=== PATIENT | male | born 1970 | race Caucasian/White ===

== ENCOUNTER 2018-11-25 09:47 | Outpatient (CLI) | payer BC, SELFPAY ==
[2018-11-26 10:55] LABS: Lyme Ab w Rflx to Lyme Confirm Negative
[2018-11-27 01:53] LABS: Anaplasma phagocytophilum Negative (Negative); B. miyamotoi PCR Negative (Negative); Babesia divergens/MO-1 Negative (Negative); Babesia duncani Negative (Negative); Babesia microti Negative (Negative); Ehrlichia chaffeensis Negative (Negative); Ehrlichia ewingii/canis Negative (Negative); Ehrlichia muris eauclairensis Negative (Negative)
== END 2018-11-25 10:07 ==
PROVIDERS: PCP Nurse Practitioner Family; Visit Provider Nurse Practitioner Family
DX: M25.50 Pain in unspecified joint (principal)
CPT/HCPCS: 36415; 87798; 86618

== ENCOUNTER 2019-03-18 19:00 | Outpatient (REF) | payer BC, SELFPAY ==
[2019-03-18 19:10] LABS: TSH (W/Ref FT4) 3.47 uIU/mL (0.36-3.74)
== END 2019-03-18 19:20 ==
LOC: NCHCN 19:00
PROVIDERS: PCP Nurse Practitioner Family; Visit Provider Nurse Practitioner Family
DX: E03.9 Hypothyroidism, unspecified (principal); Z00.00 Encounter for general adult medical examination without abnormal findings
CPT/HCPCS: 84443

== ENCOUNTER 2020-06-29 10:12 | Outpatient (CLI) | payer BC, SELFPAY ==
[2020-07-01 15:24] LABS: COVID-19 RT-PCR UVMMC Result Negative (Negative)
== END 2020-06-29 10:13 | disposition home or self-care (01) ==
LOC: LBO 10:13
PROVIDERS: PCP Nurse Practitioner; Visit Provider Nurse Practitioner
DX: Z20.822 Contact with and (suspected) exposure to COVID-19 (principal)
CPT/HCPCS: U0003

== ENCOUNTER 2020-07-31 09:58 | Outpatient (CLI) | payer BC, SELFPAY ==
--- NOTE | 2020-07-31 09:15 | DI.RAD_ITS ---
EXAM: XR KNEE LT 3V AP,LAT,JOSH CLINICAL HISTORY: knee pain TECHNIQUE: COMPARISON: No exams were available for comparison FINDINGS: Three views were obtained there is an ACL reconstruction with anchors in distal femur and proximal ti steve. There is moderate narrowing of the cartilaginous joint space of the medial tibiofemoral joint. Note is made of chondrocalcinosis. There are mild to moderate marginal osteophytes of the joints of the knee. IMPRESSION: DJD predominantly involving medial tibiofemoral joint. RADIATION DOSE DELIVERED: Total DLP
== END 2020-07-31 09:59 | disposition home or self-care (01) ==
LOC: DIORS 09:58
PROVIDERS: PCP Nurse Practitioner; Referring Provider Nurse Practitioner; Visit Provider Student in an Organized Health Care Education/Training Program
DX: M17.12 Unilateral primary osteoarthritis, left knee (principal)
CPT/HCPCS: 73562

== ENCOUNTER 2020-08-22 01:36 | Outpatient (CLI) | payer BC, SELFPAY ==
--- NOTE | 2020-08-22 06:18 | DI.MRI_ITS ---
EXAM: MR LOWER JOINT LT WO CLINICAL HISTORY: L KNEE PAIN,INTERNAL DERANGEMENT,M23.92. TECHNIQUE: Multiplanar multisequence MRI was performed. COMPARISON: CR XR KNEE LT 3V AP,LAT,JOSH from 07/31/2020 FINDINGS: There is hardware in the distal femur and proximal tibia related to prior ACL repair. The ACL appears discontinuous, consistent with complete tear. Posterior cruciate ligament appears intact. The medi al and lateral collateral ligaments and extensor mechanism are intact. There are severe degenerative changes of the medial femoral tibial joint. There is periarticular spurring. The medial meniscus is severely degenerated. There is cartilage thinning extending down to and involving underlying bon e. Cartilage thinning and irregularity is also seen over the lateral femoral condyle lateral tibial plateau. Degenerative signal changes are seen in the lateral meniscus. There is a small cyst adjac ent to the body of the lateral meniscus. The patellar cartilage appears intact. There is a small to moderate-sized joint effusion. Small synovial cyst is seen posterior to the posterior horn of the l ateral meniscus. IMPRESSION: Tear of anterior cruciate ligament repair. Severe degenerative changes of the medial femoral tibial joint. Degenerative changes of the lateral meniscus adjacent small synovial cyst and meniscal cyst. DATA REPOSITORY:
== END 2020-08-22 01:56 ==
PROVIDERS: PCP Nurse Practitioner; Visit Provider Student in an Organized Health Care Education/Training Program
DX: M25.562 Pain in left knee (principal); M17.12 Unilateral primary osteoarthritis, left knee; S83.512A Sprain of anterior cruciate ligament of left knee, initial encounter
CPT/HCPCS: 73721

== ENCOUNTER 2020-09-28 01:39 | Outpatient (CLI) | payer BC, SELFPAY ==
[2020-09-28 13:32] LABS: Calculated LDL 172 mg/dL (<100); Cholesterol 228 mg/dL (<200); HDL Cholesterol 39 mg/dL (40-60); TSH (W/Ref FT4) 5.95 uIU/mL (0.36-3.74); Triglyceride 85 mg/dL (<150)
[2020-09-28 13:36] LABS: Hemoglobin A1C 5.2 % (<5.7)
[2020-09-28 14:02] LABS: FREE T4 0.87 ng/dL (0.76-1.46)
== END 2020-09-28 01:40 | disposition home or self-care (01) ==
PROVIDERS: PCP Nurse Practitioner; Visit Provider Nurse Practitioner
DX: E03.9 Hypothyroidism, unspecified (principal); R53.83 Other fatigue; Z13.6 Encounter for screening for cardiovascular disorders; Z13.1 Encounter for screening for diabetes mellitus
CPT/HCPCS: 36415; 80061; 83036; 84439; 84443

== ENCOUNTER 2021-01-01 02:57 | Outpatient (CLI) | payer BC, SELFPAY ==
[2021-01-01 13:16] LABS: Source Nasal/Nares
[2021-01-01 16:28] LABS: COVID-19 PCR Negative (Negative)
== END 2021-01-01 02:58 | disposition home or self-care (01) ==
PROVIDERS: PCP Nurse Practitioner; Visit Provider Student in an Organized Health Care Education/Training Program
DX: Z20.822 Contact with and (suspected) exposure to COVID-19 (principal); Z01.818 Encounter for other preprocedural examination
CPT/HCPCS: 87635

== ENCOUNTER 2021-01-01 11:55 | Outpatient (CLI) | payer BC, SELFPAY ==
--- NOTE | 2021-01-01 11:15 | DI.RAD_ITS ---
Exam(s) XR CLAVICLE RT EXAM: XR CLAVICLE RT CLINICAL HISTORY: right clavicle facture TECHNIQUE: COMPARISON: DX XR CLAVICLE RIGHT (GENERIC) from 12/30/2020 DX XR CLAVICLE RIGHT (GENERIC) from 12/30/2020 FINDINGS: Two views were obtained and show moderately comminuted moderately displaced mid clavicular fracture. Alignment appears grossly unchanged comparison with outside films from December 30. IMPRESSION: RADIATION DOSE DELIVERED: Total DLP
== END 2021-01-01 11:56 | disposition home or self-care (01) ==
LOC: DIORS 11:55
PROVIDERS: PCP Nurse Practitioner; Referring Provider Nurse Practitioner; Visit Provider Student in an Organized Health Care Education/Training Program
DX: S42.001A Fracture of unspecified part of right clavicle, initial encounter for closed fracture (principal); X58.XXXA Exposure to other specified factors, initial encounter
CPT/HCPCS: 73000

== ENCOUNTER 2021-01-03 10:24 | Day surgery (SDC) | payer BC, SELFPAY ==
[2021-01-03] VITALS (7 sets, daily range): BP systolic 131–140; BP diastolic 78–96; PULSE 57–63; RESP 15–23; TEMP 36.2–36.5; O2SAT 94–98; BMI 27.7
--- NOTE | 2021-01-03 11:05 | W.ANESPRE ---
General Info Date of Service Date Performed: 01/03/21 Height: 5 ft 11 in Weight: 90.265 kg Body Mass Index (BMI): 27.7 Surgical Procedure: Operation Date: 01/03/21 12:55 Proposed Procedures Side Surgeon p Shoulder ORIF Clavicle Right James Hartley MD Meds Allergies and Home Medications Allergies Allergy/AdvReac Type Severity Reaction Status Date / Time No Known Allergies Allergy Verified 01/03/21 10:38 Home Medication Medication Instructions Recorded levothyroxine 50 mcg tablet 50 mcg PO DAILY #60 tab 11/15/20 Current Visit Medications: Current Medications Generic Name Dose Route Start Last Admin Trade Name Freq PRN Reason Stop Dose Admin Ringer's Solution 1,000 mls @ 100 mls/hr 01/03/21 06:00 IV 02/01/21 23:59 INFUSION VIOLETTA Cefazolin Sodium 2,000 mg/ 100 mls @ 200 mls/hr 01/03/21 06:00 Sodium Chloride IVPB 01/03/21 16:00 PREOP VIOLETTA IV Miscellaneous Supplies 1 each 01/03/21 06:00 Iv Access IV 02/01/21 23:59 DIRECTED VIOLETTA Sodium Chloride 0 ml 01/03/21 06:00 Normal Saline Flush 10 Ml Syr IV 02/01/21 23:59 PRN PRN Sodium Chloride 0 ml 01/03/21 06:00 Normal Saline 10 Ml Vial IJ 02/01/21 23:59 DIRECTED PRN Sterile Water 0 ml 01/03/21 06:00 Water,Injection,Sterile 10 Ml Vial IJ 02/01/21 23:59 DIRECTED PRN PFSH Active Problems Active Problems: Problem Status Onset Code Closed right clavicular fracture 12/30/20 S42.001A Strain of muscle of right hip S76.011A Traumatic arthritis of left knee M12.562 Left ACL tear S83.512A Medical History Medical History Hypothyroidism Internal hemorrhoid Rectal bleed Surgical History Surgical History Colonoscopy - MAC (11/30/17) H/O knee surgery both- 3 reconstructions Hx of hernia repair Tobacco Smoking/Tobacco Use Status: Never Alcohol Alcohol Intake: current Alcohol intake frequency: 0-2 drinks per day Substance Use Substance use: Occasionally Substance use type: marijuana Vital Signs and Lab Results Vital Signs Most Recent Vital Signs in EMR: Most Recent Vital Signs Temp Pulse Resp BP Pulse Ox 36.3 C L 59 L 18 136/81 98 01/03/21 10:30 01/03/21 10:30 01/03/21 10:30 01/03/21 10:30 01/03/21 10:30 Lab Results Blood Type / Crossmatch: No Data to Display Complete Blood Count: No Data to Display Complete Metabolic Panel: No Data to Display Liver Function Panel: No Data to Display Coagulation Panel: No Data to Display Cardiac Panel: No Data to Display Arterial Blood Gas: No Data to Display Venous Blood Gas: No Data to Display Pancreas Panel: No Data to Display Thyroid Panel: No Data to Display Infectious Disease: Coronavirus (COVID-19)(PCR) Negative (Negative) 01/01/21 11:07 01/01/21 Coronavirus 2019 Source Nasal/Nares 01/01/21 11:07 01/01/21 Blood Cultures: No Data to Display Toxicology Panel: No Data to Display Anesthesia Assessment and Plan Anesthesia History Personal History: No History of Anesthesia Complications Family History: No Family History of Anesthesia Complications Exercise Tolerance Exercise Tolerance: Metabolic Equivalents>4 Pertinent Negatives Pertinent Negatives: No Symptoms of GERD, No Major Cardiovascular Symptoms or Complaints, No Major Pulmonary Symptoms or Complaints and No History of CVA/TIA Cardiac & Pulmonary Exam Cardiac Exam: Normal S1/S2 Heart Sounds Pulmonary Exam: Clear Bilateral Breath Sounds Airway Exam Known Difficult Airway: No Mallampati Class: 1 Mouth Opening: Normal (> 3cm) Thyromental Distance: Greater than 3 cm Neck Range of Motion: Full ROM Neck Circumference: Normal Teeth Condition: Normal Dentition ASA Classification ASA Score: ASA 2 Emergency Case?: No NPO Status NPO Status: NPO Clears >2 hours, Solids >8 hours Anesthesia Plan Resuscitation Status: Full Code Anesthesia Technique: General Anesthesia Airway Planned: Endotracheal Tube Pain Management: Surgeon and patient request nerve block Monitors Used: Standard Monitors
[2021-01-03] MEDS: Lactated Ringers 1,000 ML 100 ML IV (11:06)
--- NOTE | 2021-01-03 12:15 | W.ANESNERVE ---
Nerve Block Single Injection Procedure Date and Time Date Performed: 01/03/21 Procedure Start: 12:09 Location Where Procedure Performed Procedure Location: PACU Reason Performed: Postoperative Analgesia Requesting Provider: James Hartley Timeout Performed Timeout Performed: Yes Monitoring Used ECG, Blood Pressure and SpO2 Sterility Sterility: Hand Hygiene, Surgical Cap, Surgical Mask, Sterile Gloves and Chlorhexidine Sedation Given During Procedure Sedation Given (Indicate Dose Given): Versed IV Dose:: 2 mg and Ketamine IV Dose:: 10 mg Patient Mental Status Patient Mental Status: Sedate with meaningful communication Nerve Block 1st Nerve Block: Laterality: Right Block Type: Interscalene Needle / Catheter Used: 100mm SonoPlex II Local Anesthetic Bolus (Indicate Dose Given): Lidocaine used for local infiltration of skin, Injected in 3-5ml increments after negative blood aspiration, Bupivacaine 0.5% Dose:: 7.5 ml and Exparel Dose:: 7.5 ml Additives (Indicate Dose Given): None Ultrasound: Sterile probe cover and gel used Ultrasound Image Saved?: Yes Nerve Stimulator: Not Used Paresthesia: None Procedure Tolerated: No Complications and Patient tolerated well Procedure Outcome: Successful Performed By: Elizabeth Edwards 2nd Nerve Block: Laterality: Right Block Type: Superficial Cervical Plexus Needle / Catheter Used: 100mm SonoPlex II Local Anesthetic Bolus (Indicate Dose Given): Lidocaine used for local infiltration of skin, Injected in 3-5ml increments after negative blood aspiration, Bupivacaine 0.5% Dose:: 2.5 ml and Exparel Dose:: 2.5 ml Additives (Indicate Dose Given): None Ultrasound: Sterile probe cover and gel used Ultrasound Image Saved?: Yes Nerve Stimulator: Not Used Paresthesia: None Procedure Tolerated: No Complications and Patient tolerated well Procedure Outcome: Successful Performed By: Elizabeth Edwards
[2021-01-03] MEDS: ceFAZolin 2,000 MG in Normal Saline 100 ML 200 MG IVPB (12:30)
--- NOTE | 2021-01-03 14:46 | DI.RAD_ITS ---
Exam(s) XR CLAVICLE RT EXAM: XR CLAVICLE RT CLINICAL HISTORY: right clavicle fracture. TECHNIQUE: 2D digital imaging was performed. COMPARISON: No exams were available for comparison FINDINGS: Fluoroscopy was provided during orthopedic procedure. Images not presented. See procedure report fo r details. Total fluoroscopy time 29 seconds Total clipped of dose 2.51mGy IMPRESSION: DATA REPOSITORY: RADIATION DOSE DELIVERED:
--- NOTE | 2021-01-03 15:41 | W.PM.DSUDISC ---
Discharge Plan Disposition Patient Disposition: HOME Condition: Stable Discharge Details Reason For Visit: Right clavicle surgery Attending Provider: James Hartley Primary Care Provider: Adela Gauthier Home Meds and New Rx's Prescriptions: New naproxen 250 mg tablet 250 - 500 mg PO BID PRN (Reason: Moderate pain or swelling) Qty: 60 RF: 0 aspirin 81 mg tablet,delayed release (DR/EC) 81 mg PO DAILY 14 Days Qty: 14 RF: 0 oxycodone 5 mg tablet 5 - 10 mg PO Q4H PRN (Reason: moderate to severe pain) Qty: 16 RF: 0 Continued levothyroxine 50 mcg tablet 50 mcg PO DAILY Qty: 60 RF: 0 Discharge Instructions Additional Instructions: Surgery: Right clavicle open reduction internal fixation Activity: You should keep your arm at your side in a neutral position most of the time except for gentle range of motion exercises and essential activities of daily living. Avoid any resisted pulling, pushing, or lifting anything heavier than a coffee. You should use the sling whenever you are out of the house for 6 weeks. At home it is best to remove the sling and rest the forearm on a pillow or support the operative side with your other hand. Do NOT use any power tools or machinery that cause vibrations. A physical therapy prescription will be provided at follow-up if needed. Nutrition: Recommend vitamin D 1,000 IU and calcium 1,200 mg daily to optimize bone metabolism. Prescriptions: Aspirin 81 mg take 1 daily to prevent a blood clot for 2 weeks Naproxen 250 mg take 1-2 every 12 hours with a meal as needed for moderate pain Oxycodone 5 mg take 1-2 every 4-6 hours as needed for severe pain You may use lrse-ezj-[id number] Tylenol (acetaminophen) as needed for mild pain. These pain medications may be taken all at once or in different combinations as needed. Also, recommend Colace (docusate) as a stool softener as surgery and pain medicine cause constipation. An [id number]-[id number] sleep aid like diphenhydramine (Benadryl) 25-50 mg may be used at night if needed. Dressings: Leave dressing in place until follow-up. Keep clean and dry at all times. Follow-up: 10-[address] Hartley ( at 11:30 AM) Let us know right away if you develop any redness, drainage, fevers, chest pain, or trouble breathing. Do not drink alcohol or drive for at least 24 hours after anesthesia. Please call the office during business hours with any questions or concerns. Referrals: James Hartley MD [ [facility] STAFF PHYSICIAN] - Discharge Orders Discharge Orders: Discharge Order (Routine); Ordered 01/03/21 Ordered By: James Hartley DS: Diagnosis Discharge Diagnosis (1) Closed right clavicular fracture: Status: Acute
--- NOTE | 2021-01-03 15:58 | ROE_ITS ---
Date of service: 01/03/21 Time of Service: 15:00 Operative Note Operative Note DATE OF PROCEDURE: 01/03/21 PRE-OP DIAGNOSIS: Right segmental displaced clavicle fracture POST-OP DIAGNOSIS: same PROCEDURE: Right clavicle ORIF, CPT #46779 SURGEON: James Hartley SOFTWARE PROJECT ENGINEER: Mamie Villarreal ANESTHESIA TYPE: Local By Surgeon, General LMA/ETT and Primary Nerve Block Refer to Anesthesia Record ESTIMATED BLOOD LOSS: 15 COMPLICATIONS: None Patient was transported to: PACU Patient's condition: stable Implants: Synthes 2.7 mm VA LCP clavicle XL plate with 4x medial and lateral locking 2.7mm screws; 4x medial and lateral 2.7 mm cortex lag screws; SutureTape cerclage over inferior central fragment Indications: Please see complete medical record for details. Findings: Segmental short and displaced medial, midshaft, and lateral clavicle fracture Procedure Description: In the operating room, general anesthesia was induced. The patient was positioned supine on the operating room table. All bony prominences were well-padded. Preoperative antibiotics were administered. The right clavicle was prepped and draped in the usual sterile fashion. The correct patient, procedure, and side of the procedure were all verified prior to incision. 30 cc of 0.5 bupivacaine containing epinephrine was infiltrated about the planned extensive clavicle incision. The fracture sites and medial and lateral extents were localized under fluoroscopic guidance. Sharp dissection was carried through the skin down to bone centrally taking care to raise full- thickness flaps and expose the fracture site. The exposure was then continued full-thickness subperiosteal and incision extended slightly medially as necessary to expose the medial extent of the fracture. This was repeated laterally. The wound and fracture fragments were copiously irrigated of clot and fibrinous material. The medialmost aspect of the fracture had an excellent fracture rubin. Bone clamps were used to anatomically reduce the medial clavicle to the medial segmental fragment. Laterally controlled the distal clavicle with bone clamps was used to appropriately correct rotation and length and use a reasonable fracture rubin to provisionally restore the lateral aspect the clavicle to the segmental fragment. An additional inferior posterior segmental piece was preserved with soft tissue attachments and rotated out of the way for this reduction maneuver and then provisionally brought back into its area of bony defect. Medially, the long vertical fracture lended itself to lack fixation quite well. The bone clamp was adjusted to allow for placement of two 2.7 mm lag screws from anterior to posterior maintaining anatomic reduction with excellent fixation strength and compression. The bone clamp was removed. The lateral oblique vertical fracture was then slightly optimized with rotation after predrilling the anterior cortex and using that as a hole for bone clamp, which allowed placement of a lateral 2.7 mm anterior posterior lag screw. The clamp was moved a second lateral 2.7 mm lag screw placed. Both were sequentially tightened demonstrating excellent fixation and compressive strength. All bone clamps removed. Direct visualization fluoroscopic guidance showed excellent reduction of this complex long multipart clavicle fracture. The inferior posterior additional fragment was provisionally reduced with forceps and then a suture tape was passed over the central part of the fragment and passed back so that a doubled over Nice knot could be tied, which had excellent compression and security of this last significant fragment. The knot was rotated anteroinferiorly so as not to be prominent. The clavicle is a hole demonstrated excellent fixation and stability at this time. Measurements showed the need for the longest superior plate available, which was opened and placed on the superior clavicle. It was just long enough to allow for the desired for medial and lateral screws past the extent of segmental medial lateral aspects of the fracture. The plate was slightly over contoured to accommodate the reduction already achieved as well as bent medially to be flush with the bone and reduce prominence. The plate was secured down to bone just medial to the fracture with a 2.7 cortex screw and then rotation adjusted to optimize central placement medial laterally. A 2.7 cortex screw was then placed lateral to the fracture site compressing the plate to bone laterally. Both cortex screws were tightened with the construct appropriately in place. Two variable angle bicortical locking screws were placed medially with a third medialmost screw placed as unicortical given proximity to the SC joint. Laterally, 3 bicortical variable angle locking screws were placed optimizing screw spread. All screw lengths and positions were checked and found to be appropriate. The initial cortex screws medial and laterally were removed and replaced with appropriate length bicortical locking screws to optimize fixation strength and reduce screw head prominence over the plate. Final AP, cephalic tilt, and [id number] fluoroscopy demonstrated excellent fracture reduction and appropriate hardware placement. The construct was tested and demonstrate robust gross stability. The wound was copiously irrigated with normal saline. Deep tissue was closed in a watertight full-thickness fashion using buried efdual-or-lqqxi 2-0 Monocryl stitches. 2-0 Monocryl was used to close the subcutaneous tissue in a buried interrupted fashion. 3-0 Monocryl was used to close skin in a subcuticular running fashion. Skin glue was applied over the incision followed by a Mepilex bandage. The patient awoke from anesthesia without complication and was transferred to the recovery room in a stable condition.
--- NOTE | 2021-01-03 16:00 | W.ANESPOSTOP ---
Postoperative Evaluation Date, Time and Location Date Performed: 01/03/21 Time Performed: 16:06 Patient Location: Day Surgery Unit Vital Signs Most Recent Imported Vital Signs: Most Recent Vital Signs Temp Pulse Resp BP Pulse Ox 36.2 C L 59 L 18 137/78 94 01/03/21 15:52 01/03/21 15:52 01/03/21 15:52 01/03/21 15:52 01/03/21 15:52 Pain Score Most Recent Pain Score: Most Recent Pain Score Pain Level 0 01/03/21 15:52 Assessment Mental Status: Awake (Alert & Oriented to Patient Baseline) Airway and Respiratory Function: Patent airway with normal (patient baseline) respiratory exam Cardiovascular Function: Hemodynamically Stable Hydration Status: Adequately Hydrated Nausea & Vomiting: No Nausea or Vomiting Pain: Pt. Denies Any Pain Peripheral Nerve Block: Regional nerve block not resolved at time of post operative discharge (Patient denying pain, block is appropriate. )
== END 2021-01-03 17:00 | disposition home or self-care (01) ==
LOC: SUR 10:25
PROVIDERS: PCP Nurse Practitioner; Visit Provider Student in an Organized Health Care Education/Training Program
PROC: (CPT 23515; principal; 2021-01-03 12:45)
DX: S42.031A Displaced fracture of lateral end of right clavicle, initial encounter for closed fracture (principal); X58.XXXA Exposure to other specified factors, initial encounter
CPT/HCPCS: 23515; 73000; J0690; J1100; J1885; J2001; J2250; J2405; J2704

== ENCOUNTER 2021-01-16 11:11 | Outpatient (CLI) | payer BC, SELFPAY ==
--- NOTE | 2021-01-16 11:00 | DI.RAD_ITS ---
Exam(s) XR CLAVICLE RT EXAM: XR CLAVICLE RT CLINICAL HISTORY: clavicle fx f/u. TECHNIQUE: 2D digital imaging was performed. COMPARISON: CR XR CLAVICLE RT from 01/01/2021 XR CLAVICLE RT from 01/03/2021 XR CLAVICLE RT from 01/03/2021 FINDINGS: BONES: There are stable post operative changes present. There is no change in alignment of the fract ure fragments. The fracture lines are still visualized. No new fracture or dislocation. JOINTS: The joint spaces are well maintained. No joint effusion is present. SOFT TISSUE: Normal. IMPRESSION: Stable postoperative changes. DATA REPOSITORY: RADIATION DOSE DELIVERED:
== END 2021-01-16 11:12 | disposition home or self-care (01) ==
LOC: DIORS 11:11
PROVIDERS: PCP Nurse Practitioner; Referring Provider Nurse Practitioner; Visit Provider Student in an Organized Health Care Education/Training Program
DX: S42.001D Fracture of unspecified part of right clavicle, subsequent encounter for fracture with routine healing (principal); X58.XXXA Exposure to other specified factors, initial encounter
CPT/HCPCS: 73000

== ENCOUNTER 2021-02-06 11:26 | Outpatient (CLI) | payer BC, SELFPAY ==
--- NOTE | 2021-02-06 11:15 | DI.RAD_ITS ---
Exam(s) XR CLAVICLE RT EXAM: XR CLAVICLE RT CLINICAL HISTORY: clavicle fx follow up. TECHNIQUE: 2D digital imaging was performed. COMPARISON: CR XR CLAVICLE RT from 01/16/2021 FINDINGS: Two views of the right clavicle again reveal the dorsal fixation plate secured by multiple screws and there also total of 4 independent screws, 20 side of the main fracture site. Fracture line still evident but no further displacement. No hardware loosening. No radiographic christine dence of osteomyelitis. Moderate degenerative changes are noted in the AC joint but there is no AC j oint distraction. IMPRESSION: DATA REPOSITORY: RADIATION DOSE DELIVERED:
== END 2021-02-06 11:27 | disposition home or self-care (01) ==
LOC: DIORS 11:27
PROVIDERS: PCP Nurse Practitioner; Referring Provider Nurse Practitioner; Visit Provider Student in an Organized Health Care Education/Training Program
DX: S42.031D Displaced fracture of lateral end of right clavicle, subsequent encounter for fracture with routine healing (principal)
CPT/HCPCS: 73000

== ENCOUNTER 2021-03-12 09:39 | Outpatient (CLI) | payer BC, SELFPAY ==
--- NOTE | 2021-03-12 09:30 | DI.RAD_ITS ---
Exam(s) XR CLAVICLE RT EXAM: XR CLAVICLE RT INDICATION: RIGHT CLAVICULAR FX F/U. COMPARISON: CR XR CLAVICLE RT from 02/06/2021 TECHNIQUE: 2D digital imaging was performed. FINDINGS: Has been no change in the fixation plate or fracture alignment. No new abnormalities. Degenerative changes AC joint and glenohumeral joint. DATA REPOSITORY: RADIATION DOSE DELIVERED:
== END 2021-03-12 09:40 | disposition home or self-care (01) ==
LOC: DIORS 09:39
PROVIDERS: PCP Nurse Practitioner; Referring Provider Nurse Practitioner; Visit Provider Student in an Organized Health Care Education/Training Program
DX: S42.031D Displaced fracture of lateral end of right clavicle, subsequent encounter for fracture with routine healing (principal)
CPT/HCPCS: 73000

== ENCOUNTER 2021-03-29 03:05 | Outpatient (CLI) | payer BC, SELFPAY ==
[2021-03-29 14:13] LABS: TSH 2.71 uIU/mL (0.36-3.74)
== END 2021-03-29 03:06 | disposition home or self-care (01) ==
LOC: LOS 03:06
PROVIDERS: PCP Nurse Practitioner; Visit Provider Nurse Practitioner
DX: E03.9 Hypothyroidism, unspecified (principal)
CPT/HCPCS: 36415; 84443

== ENCOUNTER 2021-05-21 08:26 | Outpatient (CLI) | payer BC, SELFPAY ==
--- NOTE | 2021-05-21 08:00 | DI.RAD_ITS ---
Exam(s) XR CLAVICLE RT EXAM: XR CLAVICLE RT CLINICAL HISTORY: right clavicle fx f/u TECHNIQUE: 2D digital imaging was performed of the right clavicle. Two images were obtained. AP and axial views were obtained. COMPARISON: CR XR CLAVICLE RT from 03/12/2021 FINDINGS: BONES: There is again seen a sideplate and screws transfixing the right clavicular fracture. The ort hopedic hardware appears in good position there is stable alignment of the fracture. The fracture is mostly healed. No bony destructive lesion is seen. JOINTS: No dislocation present. SOFT TISSUE: Normal IMPRESSION: Stable healing right clavicular fracture. DATA REPOSITORY: RADIATION DOSE DELIVERED:
--- NOTE | 2021-05-21 08:51 | DI.RAD_ITS ---
Exam(s) XR FOOT RT COMPLETE EXAM: XR FOOT RT COMPLETE CLINICAL HISTORY: R foot pain. TECHNIQUE: 2D digital imaging was performed of the right foot. Three images were obtained. AP, obl ique and lateral views were obtained. COMPARISON: No exams were available for comparison FINDINGS: BONES: No acute fracture is present. No bony destructive lesion is seen. JOINTS: No dislocation present. SOFT TISSUE: Normal. IMPRESSION: Unremarkable radiographs of the right foot. DATA REPOSITORY: RADIATION DOSE DELIVERED:
== END 2021-05-21 08:27 | disposition home or self-care (01) ==
PROVIDERS: PCP Nurse Practitioner; Referring Provider Nurse Practitioner; Visit Provider Student in an Organized Health Care Education/Training Program
DX: M79.671 Pain in right foot (principal); M72.2 Plantar fascial fibromatosis; S42.031D Displaced fracture of lateral end of right clavicle, subsequent encounter for fracture with routine healing; X58.XXXA Exposure to other specified factors, initial encounter
CPT/HCPCS: 73000; 73630

== ENCOUNTER 2021-11-26 08:24 | Outpatient (CLI) | payer BC, SELFPAY ==
--- NOTE | 2021-11-26 08:15 | DI.RAD_ITS ---
Exam(s) XR CLAVICLE RT EXAM: XR CLAVICLE RT CLINICAL HISTORY: ORIF clavicle TECHNIQUE: 2D digital imaging was performed of the right clavicle. Two images were obtained. AP and axial views were obtained. COMPARISON: CR XR CLAVICLE RT from 05/21/2021 FINDINGS: BONES: There is again seen a sideplate and screws in the clavicle. The fracture appears well healed. No acute fracture is seen. No bony destructive lesion is seen. JOINTS: No dislocation present. Degenerative changes are seen at the acromioclavicular joint. SOFT TISSUE: Normal IMPRESSION: Healed right clavicular fracture. DATA REPOSITORY: RADIATION DOSE DELIVERED:
== END 2021-11-26 08:25 | disposition home or self-care (01) ==
LOC: DIORS 08:24
PROVIDERS: PCP Nurse Practitioner; Referring Provider Nurse Practitioner; Visit Provider Physician Assistant
DX: Z87.81 Personal history of (healed) traumatic fracture (principal); Z98.890 Other specified postprocedural states
CPT/HCPCS: 73000

== ENCOUNTER 2022-05-07 00:52 | Outpatient (CLI) | payer BC, SELFPAY ==
--- NOTE | 2022-05-07 06:45 | DI.RAD_ITS ---
Exam(s) XR ANKLE RT COMPLETE EXAM: XR ANKLE RT COMPLETE CLINICAL HISTORY: R foot pain, insertional PT,TIBIAL TENDINITIS,M79.673,M76.829. TECHNIQUE: 2D digital imaging was performed. COMPARISON: No exams were available for comparison FINDINGS: 3 views No evidence of fracture or widening of the ankle mortise. Talar dome appears unremarkable. Bone den sity normal. No obvious degenerative changes. No inferior calcaneal spur. No osseous tarsal coalit ion evident. IMPRESSION: No significant osseous findings. DATA REPOSITORY: RADIATION DOSE DELIVERED:
--- NOTE | 2022-05-07 06:45 | DI.RAD_ITS ---
Exam(s) XR FOOT RT COMPLETE EXAM: XR FOOT RT COMPLETE CLINICAL HISTORY: R foot pain, insertional PT,M79.673,M76.829. TECHNIQUE: 2D digital imaging was performed. COMPARISON: CR XR ANKLE RT COMPLETE from 05/07/2022 FINDINGS: 3 views There is no evidence of fracture or diastasis of the Lisfranc joint. Bone density normal. No osseou s lesions nor erosions. No obvious degenerative changes. No pes planus. No hallux valgus. IMPRESSION: No significant osseous findings in the foot. DATA REPOSITORY: RADIATION DOSE DELIVERED:
== END 2022-05-07 01:12 ==
LOC: DI 00:52
PROVIDERS: PCP Nurse Practitioner Family; Visit Provider Podiatrist Foot & Ankle Surgery
DX: M79.671 Pain in right foot (principal); M76.821 Posterior tibial tendinitis, right leg
CPT/HCPCS: 73610; 73630

== ENCOUNTER 2022-07-11 15:05 | Outpatient (CLI) | payer BC, SELFPAY ==
--- NOTE | 2022-07-11 14:00 | DI.RAD_ITS ---
Exam(s) XR KNEE LT 3V AP,LAT,JOSH EXAM: XR KNEE LT 3V AP,LAT,JOSH CLINICAL HISTORY: PAIN LT KNEE, M25.562. TECHNIQUE: 2D digital imaging was performed. Three views. COMPARISON: CR XR KNEE LT 3V AP,LAT,JOSH from 07/31/2020 MR MR LOWER JOINT LT WO from 08/22/2020 FINDINGS: BONES: No acute fracture is present. No bony destructive lesion is seen. Patient is status post ACL repair. No abnormal lucency around the hardware. JOINTS: The knee is normally aligned. No joint effusion is seen. There is stable moderate narrowing o f the medial femoral tibial joint space and periarticular spurring. Spurring is also noted at the la teral femoral tibial joint and patellofemoral joint. Chondrocalcinosis faintly visible. 2 small ean nt space loose bodies seen anteriorly in the femoral tibial joint. SOFT TISSUE: Normal. IMPRESSION: Stable degenerative changes greatest of the medial femoral tibial joint. Small joint space loose bod ies. DATA REPOSITORY: RADIATION DOSE DELIVERED:
--- NOTE | 2022-07-11 14:00 | DI.RAD_ITS ---
Exam(s) XR KNEE RT 3V AP,LAT,JOSH EXAM: XR KNEE RT 3V AP,LAT,JOSH CLINICAL HISTORY: PAIN RT KNEE, M25.561. TECHNIQUE: 2D digital imaging was performed. Three views. COMPARISON: None FINDINGS: BONES: No acute fracture is present. No bony destructive lesion is seen. Prior ACL repair. JOINTS: There is lateral femoral tibial joint space narrowing and periarticular spurring. The knee i s normally aligned. Patellofemoral joint space is maintained. There is mild spurring at the articul ar surface. There is small joint effusion. There is question of a loose body seen posterior to the femoral condyles. SOFT TISSUE: Normal. IMPRESSION: Degenerative change in a lateral femoral tibial joint. Question of posterior joint space loose body. Status post ACL repair. DATA REPOSITORY: RADIATION DOSE DELIVERED:
== END 2022-07-11 15:25 ==
PROVIDERS: PCP Nurse Practitioner Family; Visit Provider Student in an Organized Health Care Education/Training Program
DX: M17.0 Bilateral primary osteoarthritis of knee (principal)
CPT/HCPCS: 73562

== ENCOUNTER 2022-07-18 01:02 | Outpatient (CLI) | payer BC, SELFPAY ==
--- NOTE | 2022-07-18 | DI.MRI_ITS ---
Exam(s) MR LOWER JOINT RT WO EXAM: MR LOWER JOINT RT WO CLINICAL HISTORY: INTERNAL DERANGEMENT ANKLE,M24.9,PAIN,INSTABILITY TECHNIQUE: Multiplanar multisequence MRI was performed without intravenous contrast. COMPARISON: CR XR ANKLE RT COMPLETE from 05/07/2022 FINDINGS: SKIN: No evidence of ulcer nor subcutaneous tract. BONES/JOINTS: No evidence of fracture nor bone contusion. No joint effusion is present. The talar do me appears unremarkable. The ankle mortise is maintained and there is no signal abnormality in the malleoli and tibial plafond. Benign intraosseous vascular variant noted in the mid calcaneus. There is no evidence of osseous tarsal coalition. Small effusion lateral aspect of the calcaneocuboid ean nt. No degenerative changes. Partially included main Lisfranc ligament appears intact. No abnormal intraosseous signal in the cuneiform bones and visualize metatarsal bases. Mild edema in the medial aspect of the navicular. LIGAMENTS: The anterior and posterior tibiofibular and calcaneofibular ligaments are intact. The ante rior and posterior talofibular ligaments are intact. The deltoid ligament is intact. SINUS TARSI: There is abnormal signal the sinus tarsi and there is a sinus tarsi ganglion cyst around the frondiform ligament, this measuring 1.7 cm AP by 0.6 cm wide by 1.8 cm cephalocaudal. There is no obvious tear of the inter osseous ligament within the tarsal canal. ANTEROLATERAL GUTTER:There is no abnormal signal/abnormal tissue in this space. MUSCULOTENDINOUS STRUCTURES: Achilles tendon: Unremarkable. No evidence of tear nor tendinitis/tendinosis. There is trace fluid i n the retrocalcaneal bursa. Plantar fascia: Mild increased intrasubstance signal. No thickening. No nodularity. Anterior Extensor tendons: Unremarkable. Medial Tendons: Posterior Tibialis: Increased abnormal signal distal tendon with partial tearing at its insertional a spect on the navicular tuberosity. Mild tenosynovitis. Flexor Digitorum longus: Unremarkable. No tear or tenosynovitis evident. Flexor Hallicus longus: Unremarkable. No tear or tenosynovitis evident. Lateral Tendons: Peroneus longus: Unremarkable. No tear nor tenosynovitis evident. Peroneus brevis:Unremarkable. No tear nor tenosynovitis evident. SOFT TISSUES: No abnormal mass evident. OTHER FINDINGS: None. IMPRESSION: 1. There is signal abnormality consistent with tendinitis and partial tearing at the level of the dis dale tibialis posterior tendon at its insertional aspect on the navicular tuberosity. There is also m ild bone edema in the navicular tuberosity. There is no sesamoid bone nor accessory ossicle at this level. Flexor digitorum and flexor hallucis longus appear unremarkable. Peroneus longus and brevis unremarkable. 2. Mild loss of normal fat signal in sinus tarsi and there is a sinus tarsi ganglion cyst which measu res 17 x 6 x 18 millimeter, associated with the frondiform ligament. 3. Small joint effusion lateral aspect of the calcaneocuboid joint. There are no degenerative change s nor subarticular signal around this joint. DATA REPOSITORY:
== END 2022-07-18 01:22 ==
LOC: DI 01:03
PROVIDERS: PCP Nurse Practitioner Family; Visit Provider Nurse Practitioner Acute Care
DX: M25.571 Pain in right ankle and joints of right foot (principal); M24.171 Other articular cartilage disorders, right ankle; M77.51 Other enthesopathy of right foot and ankle; M25.471 Effusion, right ankle; M25.871 Other specified joint disorders, right ankle and foot
CPT/HCPCS: 73721

== ENCOUNTER 2022-08-07 08:43 | Day surgery (SDC) | payer BC, SELFPAY ==
--- NOTE | 2022-08-07 05:14 | W.PM.DSUDISC ---
Date of service: 08/07/22 Time of Service: 12:08 Discharge Plan Disposition Patient Disposition: Home Condition: Good Discharge Details Reason For Visit: Screening colonoscopy Attending Provider: Richard Sol Primary Care Provider: Bc Uriostegui Home Meds and New Rx's Prescriptions: Continued levothyroxine 125 mcg capsule 125 mcg PO DAILY Qty: 90 4RF Discontinued bisacodyl [Dulcolax (bisacodyl)] 5 mg tablet,delayed release (DR/EC) 5 mg PO ONCE Qty: 4 0RF Rx Instructions: Take according to provider's instructions for colonoscopy prep. polyethylene glycol 3350 17 gram/dose powder 17 g PO ONCE Qty: 238 0RF Rx Instructions: To be taken as directed by prescriber's office for colonoscopy prep. Discharge Instructions Additional Instructions: Noe, I was able to complete your colonoscopy today without any difficulty. There was a small amount of what looked to be scar tissue on the inside portion of your anus, just on top of the hemorrhoid. I performed a biopsy of this, but I do not find anything about it that appears worrisome. I will notify you when I have the biopsy results. Otherwise your colon looks great. I did not see any signs of polyps or tumors. Assuming that biopsy from the anus is negative, I would recommend a follow-up colonoscopy in 10 years. I will let you know for sure when I have the pathology results. 1. If tolerated, consume a soft, low fiber diet for 1-2 days. 2[address] Do not drive, drink alcohol, operate machinery, make critical decisions, or do activities that require coordination or balance for 24 hours. 3. Because air was put into your colon during the procedure, expelling air from your rectum (passing gas or farting) is normal. 4. You may not have a bowel movement for 1-3 days because of the colonoscopy prep. This is normal. 5. Go directly to the emergency room if you notice any of the following: Develop chills (warm to touch), or if you have a thermometer and your temperature is above 101 Difficulty breathing or difficultly swallowing Persistent vomiting Severe abdominal pain, other than gas cramps Severe chest pain Black, tarry stools Any bleeding ? exceeding one tablespoon 6. Call your physician if the site where your intravenous was started becomes red, swollen, painful, and warm to touch. 7. Your physician has reviewed your pre-procedure medications. Please continue to take those medications as previously ordered. You will be given specific information/education regarding any changes to your medications before leaving. Activity:: Activity as Tolerated Diet:: As Tolerated Discharge Orders Discharge Orders: Discharge Order (Routine); Ordered 08/07/22 Ordered By: Richard Sol DS: Diagnosis Discharge Diagnosis (1) Screening for colon cancer: Status: Acute Asessment and Plan: Follow-up on biopsy results
--- NOTE | 2022-08-07 05:18 | COLE_ITS ---
Date of service: 08/07/22 Time of Service: 12:10 Colonoscopy Report Date of procedure: 08/07/22 Pre-op diagnosis general: Screening colonoscopy Post-op diagnosis procedure note: other (Anal mass) Procedure: Colonoscopy with biopsy Surgeon: Richard Sol Anesthesia Type: General:No Airway Estimated blood loss (mL): 5 Pathology: other (Anal tissue) Complications: None Disposition: same day Indications: Noe is a 52 year old male who underwent colonoscopy in 2018 for rectal bleeding. He was found to have a sessile serrated adenoma. He is here for a follow up screening colonoscopy Prep: Miralax/Dulcolax Procedure Start Time: 11:35 Procedure End Time: 11:51 Retraction Time: 11 Findings: Anal lesion Procedure Description: After the induction of monitored anesthetic care, and with the patient in left lateral decubitus position, I began by performing an external anorectal exam.? Perineum and skin were normal, as was the anal verge.? There was no evidence of external hemorrhoids.? Next, I performed a digital rectal exam.? I did not appreciate any abnormal findings.? Next, I advanced a colonoscope into the rectal vault.? I performed retroflexion.? There was a small fold of indurated tissue sitting atop of the internal hemorrhoid column. It appeared consistent with scar tissue, however it was slightly raised. I performed a cold forcep biopsy of the tissue. There was minimal bleeding.? Using insufflation, I then a dvanced the colonoscope beyond the rectal folds and into the sigmoid colon before advancing towards the cecum.? The quality of the prep was excellent.? The scope was noted to be in the cecum by identification of the ileocecal valve and appendiceal orifice.? I then began withdrawing the colonoscope using repeated irrigation as necessary for full evaluation of the colonic mucosa. ?Once the scope was withdrawn to the level of the rectum, great care was taken to examine portions of the rectal folds.? I did not see any other signs of polyps or tumors. Finally, the scope was withdrawn and the patient was brought to the same-day surgery recovery unit as the anesthetic wore off. ?The findings and instructions were shared with the patient prior to discharge.
[2022-08-07 07:50] VITALS: BP 142/89; PULSE 69; RESP 16; TEMP 36.2; O2SAT 96
[2022-08-07] MEDS: Lactated Ringers 1,000 ML 80 ML IV (09:28)
[2022-08-07 10:01] VITALS: BMI 37.8
--- NOTE | 2022-08-07 10:01 | W.ANESPRE ---
General Info Date of Service Date Performed: 08/07/22 Height: 4 ft 11.5 in Weight: 86.3 kg Body Mass Index (BMI): 37.8 Surgical Procedure: Operation Date: 08/07/22 10:20 Proposed Procedure Side Surgeon cynthia Sol MD Meds Allergies and Home Medications Allergies Allergy/AdvReac Type Severity Reaction Status Date / Time No Known Allergies Allergy Verified 08/07/22 09:09 Home Medication Medication Instructions Recorded levothyroxine 125 mcg capsule 125 mcg PO DAILY #90 caps 05/31/21 Current Visit Medications: Current Medications Generic Name Dose Route Start Last Admin Trade Name Freq PRN Reason Stop Dose Admin Hyoscyamine Sulfate 0.125 mg 08/07/22 05:20 Hyoscyamine 0.125 Mg Sl/Oral/Chew SL DIRECTED PRN Ringer's Solution 1,000 mls @ 80 mls/hr 08/07/22 06:00 08/07/22 09:28 IV 09/05/22 23:59 80 mls/hr INFUSION VIOLETTA Administration IV Miscellaneous Supplies 1 each 08/07/22 06:00 Iv Access IV 09/05/22 23:59 DIRECTED VIOLETTA Ondansetron HCl 4 mg 08/07/22 05:20 Ondansetron 4 Mg/2 Ml Vial IVP Q4H PRN PRN Nausea / Vomiting Sodium Chloride 0 ml 08/07/22 06:00 Normal Saline Flush 10 Ml Syr IV 09/05/22 23:59 PRN PRN Sodium Chloride 0 ml 08/07/22 06:00 Normal Saline 10 Ml Vial IJ 09/05/22 23:59 DIRECTED PRN Sterile Water 0 ml 08/07/22 06:00 Water,Injection,Sterile 10 Ml Vial IJ 09/05/22 23:59 DIRECTED PRN PFSH Active Problems Active Problems: Problem Status Onset Code Screening for colon cancer Z12.11 Pain, foot M79.673 Tibial tendinitis, posterior M76.829 Pain of right midfoot M79.671 Posterior tibial tendon dysfunction M76.829 Closed right clavicular fracture 12/30/20 S42.001A Strain of muscle of right hip S76.011A Traumatic arthritis of left knee M12.562 Left ACL tear S83.512A Medical History Medical History Hyperplastic colon polyp Internal hemorrhoid Plantar fasciitis of right foot Rectal bleed Serrated adenoma of colon Tubular adenoma of colon Surgical History Surgical History Colonoscopy - [facility] (11/30/17) H/O knee surgery both- 3 reconstructions Hx of hernia repair Tobacco Smoking/Tobacco Use Status: Never Alcohol Alcohol Intake: current Alcohol intake frequency: 0-2 drinks per day Substance Use Substance use: Occasionally Substance use type: marijuana Vital Signs and Lab Results Vital Signs Most Recent Vital Signs in EMR: Most Recent Vital Signs Temp Pulse Resp BP Pulse Ox 36.2 C L 69 16 142/89 H 96 08/07/22 07:50 08/07/22 07:50 08/07/22 07:50 08/07/22 07:50 08/07/22 07:50 Lab Results Blood Type / Crossmatch: No Data to Display Complete Blood Count: No Data to Display Complete Metabolic Panel: No Data to Display Liver Function Panel: No Data to Display Coagulation Panel: No Data to Display Cardiac Panel: No Data to Display Arterial Blood Gas: No Data to Display Venous Blood Gas: No Data to Display Pancreas Panel: No Data to Display Thyroid Panel: No Data to Display Infectious Disease: No Data to Display Blood Cultures: No Data to Display Toxicology Panel: No Data to Display Anesthesia Assessment and Plan Anesthesia History Personal History: No History of Anesthesia Complications Family History: No Family History of Anesthesia Complications Exercise Tolerance Exercise Tolerance: Metabolic Equivalents>4 Pertinent Negatives Pertinent Negatives: No Symptoms of GERD, No Major Cardiovascular Symptoms or Complaints and No Major Pulmonary Symptoms or Complaints Cardiac & Pulmonary Exam Cardiac Exam: Normal S1/S2 Heart Sounds Pulmonary Exam: Clear Bilateral Breath Sounds Implantable Cardiac Device Does patient have a Pacemaker or an ICD?: No Airway Exam Known Difficult Airway: No Mallampati Class: 1 Mouth Opening: Normal (> 3cm) Thyromental Distance: Greater than 3 cm Neck Range of Motion: Full ROM Neck Circumference: Normal Teeth Condition: Normal Dentition ASA Classification ASA Score: ASA 2 Emergency Case?: No NPO Status NPO Status: NPO Clears >2 hours, Solids >8 hours Anesthesia Plan Resuscitation Status: Full Code Anesthesia Technique: General Anesthesia Airway Planned: Natural Airway Monitors Used: Standard Monitors
--- NOTE | 2022-08-07 11:30 | BOWEL_PTH ---
PATIENT: Noe Morrison LOC: [facility] U#:[id number] AGE/SX: 52/M ROOM: RE08/07/[address]: Richard Sol MD : [id number] BED: DIS: 08/07/2022 SPEC #: [id number] RECD: 08/07/22 12:38 STATUS: MEDARDO REQ #: [id number] KIMBERLY: 08/07/22 11:[address]: Richard Sol DEPT: Surgical Specimen RECD BY: Elise Huggins ENTERED: 08/07/22 12:39 SP TYPE: Bowel OTHR DR: Bc Mcintosh DNP Tissues: 1 - BIOPSY BOWEL Procedures: GROSS AND MICRO LEVEL 4 Comments: [id number]
[2022-08-07 11:59] VITALS: BP 146/96; PULSE 80; RESP 18; TEMP 36.5; O2SAT 97
--- NOTE | 2022-08-07 12:22 | W.ANESPOSTOP ---
Postoperative Evaluation Date, Time and Location Date Performed: 08/07/22 Time Performed: 12:00 Patient Location: Day Surgery Unit Vital Signs Most Recent Imported Vital Signs: Most Recent Vital Signs Temp Pulse Resp BP Pulse Ox 36.5 C 80 18 146/96 H 97 08/07/22 11:59 08/07/22 11:59 08/07/22 11:59 08/07/22 11:59 08/07/22 11:59 Pain Score Most Recent Pain Score: Most Recent Pain Score Pain Level 2 08/07/22 11:59 Assessment Mental Status: Awake (Alert & Oriented to Patient Baseline) Airway and Respiratory Function: Patent airway with normal (patient baseline) respiratory exam Cardiovascular Function: Hemodynamically Stable Hydration Status: Adequately Hydrated Nausea & Vomiting: No Nausea or Vomiting Pain: Pain is tolerable per patient Peripheral Nerve Block: Patient did not receive a nerve block
[2022-08-07 12:32] VITALS: BP 140/97; PULSE 63; RESP 18; O2SAT 96
== END 2022-08-07 12:53 | disposition home or self-care (01) ==
PROVIDERS: PCP Nurse Practitioner Family; Visit Provider Surgery
PROC: 0DJD8ZZ Inspection of Lower Intestinal Tract, Via Natural or Artificial Opening Endoscopic (ICD-10-PCS; CPT 45378; principal; 2022-08-07 10:15)
DX: Z12.11 Encounter for screening for malignant neoplasm of colon (principal); K62.89 Other specified diseases of anus and rectum; Z86.010 Personal history of colon polyps
CPT/HCPCS: 45380; 88305

== ENCOUNTER 2022-08-14 16:07 | Outpatient (CLI) | payer BC, SELFPAY ==
[2022-08-14 16:12] LABS: TSH (W/Ref FT4) 3.53 uIU/mL (0.36-3.74)
== END 2022-08-14 16:08 | disposition home or self-care (01) ==
LOC: LBO 16:08
PROVIDERS: PCP Nurse Practitioner Family; Visit Provider Nurse Practitioner Family
DX: E03.9 Hypothyroidism, unspecified (principal)
CPT/HCPCS: 36415; 84443

== ENCOUNTER 2022-11-25 08:54 | Outpatient (CLI) | payer BC, SELFPAY ==
--- NOTE | 2022-11-25 08:15 | DI.RAD_ITS ---
Exam(s) XR KNEE RT 3V AP,LAT,JOSH EXAM: XR KNEE RT 3V AP,LAT,JOSH CLINICAL HISTORY: pain. TECHNIQUE: 2D digital imaging was performed. COMPARISON: CR XR KNEE RT 3V AP,LAT,JOSH from 07/11/2022 FINDINGS: 3 views Again noted is evidence of previous ACL surgery. No evidence of acute fracture although there is a s ignificant size joint effusion again noted. On the weight-bearing view there is [id number] narrowi ng of the lateral compartment. Lesser degenerative changes are noted in medial. Moderate degenerati ve changes in the patellofemoral compartment. IMPRESSION: Previous ACL surgery. Significant degenerative changes evident. Nure-mr-frtc narrowing of the later al compartment, seen on the standing view. DATA REPOSITORY: RADIATION DOSE DELIVERED:
== END 2022-11-25 08:55 | disposition home or self-care (01) ==
LOC: DIORS 08:54
PROVIDERS: PCP Nurse Practitioner Family; Referring Provider Nurse Practitioner Family; Visit Provider Physician Assistant
DX: Z98.890 Other specified postprocedural states (principal); M25.861 Other specified joint disorders, right knee; M25.561 Pain in right knee
CPT/HCPCS: 73562

== ENCOUNTER 2022-12-15 00:38 | Outpatient (CLI) | payer BC, SELFPAY ==
--- NOTE | 2022-12-15 07:45 | DI.MRI_ITS ---
Exam(s) MR LOWER JOINT RT WO EXAM: MR LOWER JOINT RT WO CLINICAL HISTORY: R KNEE PAIN ? MENISCAL TEAR, INTERNAL DERANGEMENT RT KNEE, M23.91. TECHNIQUE: Multiplanar multisequence MRI was performed. COMPARISON: CR XR KNEE RT 3V AP,LAT,JOSH from 11/25/2022 FINDINGS: BONES: There is no fracture or contusion pattern. Hardware related to ACL repair in distal femur and proximal tibia creates artifact. Degenerative cysts are noted in the proximal tibia near the leve l of the tibial spines. Spurring from the femoral condyles and tibial plateaus. JOINTS: A small joint effusion is present. Articular cartilage: Patellofemoral joint: Articular cartilage is unremarkable. Medial femoral tibial joint: Mild cartilage thinning. Lateral femoral tibial joint: Cartilage thinning greatest at posterior lateral femoral tibial joint extending down to involving underlying bone. TENDONS: Extensor mechanism: Unremarkable. Medial retinaculum: Unremarkable. Lateral retinaculum: Unremarkable. Popliteus: Unremarkable. MUSCLES: Unremarkable. MENISCI: Extremely diminutive with degenerative signal changes particularly of the body and posterior horn. SOFT TISSUES: Small multi loculated ganglia seen posteriorly. LIGAMENTS: Anterior Cruciate: Not visible. The tibia appears abnormally anteriorly positioned with respect to t he distal femur. Posterior Cruciate: Unremarkable. Medial Collateral:Unremarkable. Lateral Collateral: Unremarkable. IMPRESSION: Tear of ACL graft. Severe degenerative and/or postsurgical changes of both menisci, greater body and posterior horn. De generative changes with cartilage thinning of the femoral tibial joint spaces, greater laterally. DATA REPOSITORY:
== END 2022-12-15 00:58 ==
LOC: DI 00:38
PROVIDERS: PCP Nurse Practitioner Family; Visit Provider Physician Assistant
DX: S83.511A Sprain of anterior cruciate ligament of right knee, initial encounter (principal); M23.221 Derangement of posterior horn of medial meniscus due to old tear or injury, right knee; X58.XXXA Exposure to other specified factors, initial encounter
CPT/HCPCS: 73721

== ENCOUNTER 2023-07-09 01:45 | Outpatient (CLI) | payer BC, SELFPAY ==
[2023-07-09 17:06] LABS: ALT 41 U/L (16-63); AST 17 U/L (15-37); Albumin 3.7 g/dL (3.4-5.0); Alkaline Phosphatase 78 U/L (46-116); Anion Gap 10.9 mmol/L (3-11); BUN 21 mg/dL (7-18); Bilirubin, Total 0.2 mg/dL (0.2-1.0); CO2 25.1 mmol/L (21.0-32.0); CREATININE 1.3 mg/dL (0.70-1.30); Calculated LDL 126 mg/dL (<100); Chloride 103 mmol/L (98-107); Cholesterol 212 mg/dL (<200); Estimated GFR 66.51 (mL/min/1.73m2); Glucose 140 mg/dL (74-106); HDL Cholesterol 36 mg/dL (40-60); Potassium 3.5 mmol/L (3.5-5.1); Sodium 139 mmol/L (136-145); TSH (W/Ref FT4) 2.67 uIU/mL (0.36-3.74); Total Protein 7.7 g/dL (6.4-8.2); Triglyceride 250 mg/dL (<150)
[2023-07-10 19:08] LABS: HIV-1/2 Ag & Ab Screen Negative (Negative)
[2023-07-10 19:11] LABS: Hepatitis C Ab w Rflx HCV PCR Negative (Negative)
== END 2023-07-09 01:46 | disposition home or self-care (01) ==
LOC: LBO 01:45
PROVIDERS: PCP Nurse Practitioner Family; Visit Provider Nurse Practitioner Family
DX: Z11.4 Encounter for screening for human immunodeficiency virus [HIV] (principal); Z13.220 Encounter for screening for lipoid disorders; Z11.59 Encounter for screening for other viral diseases; E03.9 Hypothyroidism, unspecified
CPT/HCPCS: 36415; 80053; 80061; 86803; 87389; 84443

== ENCOUNTER 2023-09-17 09:40 | Outpatient (CLI) | payer BC, SELFPAY ==
[2023-09-17 08:34] LABS: HCT 42.4 % (40.0-50.0); MCH 31.8 pg (27.0-33.0); MCHC 35.4 % (32.0-36.0); MCV 90 fL (80-95); MPV 9.5 fL (8.0-11.0); Platelet Count 202 10^3/uL (130-400); RBC 4.71 10^6/uL (4.36-5.78); RDW-SD 39.4 fL; WBC 3.42 10^3/uL (4.4-10.8)
[2023-09-17 09:04] LABS: Anion Gap 8.9 mmol/L (3-11); BUN 15 mg/dL (7-18); CO2 26.1 mmol/L (21.0-32.0); CREATININE 1.1 mg/dL (0.70-1.30); Calcium 8.9 mg/dL (8.5-10.1); Chloride 102 mmol/L (98-107); Estimated GFR 81.28 (mL/min/1.73m2); Glucose 98 mg/dL (74-106); Potassium 4.1 mmol/L (3.5-5.1); Sodium 137 mmol/L (136-145)
[2023-09-24 15:57] LABS: Testosterone, Free 14.3 ng/dL (4.06-15.6); Testosterone, Total 485 ng/dL (240-950)
== END 2023-09-17 09:41 | disposition home or self-care (01) ==
LOC: LBO 09:40
PROVIDERS: PCP Nurse Practitioner Family; Visit Provider Nurse Practitioner Family
DX: R53.83 Other fatigue (principal); I10 Essential (primary) hypertension
CPT/HCPCS: 36415; 80048; 84402; 84403; 85027

== ENCOUNTER 2024-01-22 13:16 | Outpatient (REF) | payer BC, SELFPAY ==
[2024-01-25 10:55] LABS: Anaplasma phagocytophilum Negative (Negative); B. miyamotoi PCR Negative (Negative); Babesia divergens/MO-1 Negative (Negative); Babesia duncani Negative (Negative); Babesia microti Negative (Negative); Ehrlichia chaffeensis Negative (Negative); Ehrlichia ewingii/canis Negative (Negative); Ehrlichia muris eauclairensis Negative (Negative)
[2024-01-25 12:11] LABS: Lyme Ab w Rflx to Lyme Confirm Negative (Negative)
== END 2024-01-22 13:17 | disposition home or self-care (01) ==
LOC: NCHCN 13:16
PROVIDERS: PCP Nurse Practitioner Family; Visit Provider Nurse Practitioner Family
DX: R53.83 Other fatigue (principal)
CPT/HCPCS: 87798; 86618

== ENCOUNTER 2024-05-23 15:46 | Outpatient (CLI) | payer BC, SELFPAY ==
--- NOTE | 2024-05-23 08:15 | DI.RAD_ITS ---
Exam(s) XR KNEE LT 1V XR STANDING ALIGNMENT EXAM: XR STANDING ALIGNMENT and XR knee LT 1 V CLINICAL HISTORY: PRE OP L TKA. TECHNIQUE: 2D digital imaging was performed. Five images were obtained. COMPARISON: CR XR KNEE RT 3V AP,LAT,JOSH from 07/11/2022 CR XR KNEE RT 3V AP,LAT,JOSH from 11/25/2022 DX XR FEMUR 2 VIEWS LEFT (GENERIC) from 02/04/2024 FINDINGS: BONES: Mild degenerative changes are seen in the hips bilaterally. The patient has had bilateral ACL repairs. In the right knee, the joint spaces are well maintained. Very mild degenerative changes a re seen in the medial femoral tibial joint. In the left knee, there is kmci-vc-jwgauoub narrowing of the medial femoral tibial joint in the patellofemoral joint. Osteophytes are seen in the knee predo minantly involving the medial femoral tibial patellofemoral joint. There is a small joint effusion i n the left knee. There is a well corticated osseous density seen in the anterior joint space which m ay represent a loose body. Chondrocalcinosis is present. The ankles are well maintained.There is no significant leg length discrepancy. SOFT TISSUE: Normal. IMPRESSION: Osteoarthritis of the knees, left greater than right. DATA REPOSITORY: RADIATION DOSE DELIVERED:
--- NOTE | 2024-05-23 08:23 | DI.RAD_ITS ---
Exam(s) XR KNEE LT 1V XR STANDING ALIGNMENT EXAM: XR STANDING ALIGNMENT and XR knee LT 1 V CLINICAL HISTORY: PRE OP L TKA. TECHNIQUE: 2D digital imaging was performed. Five images were obtained. COMPARISON: CR XR KNEE RT 3V AP,LAT,JOSH from 07/11/2022 CR XR KNEE RT 3V AP,LAT,JOSH from 11/25/2022 DX XR FEMUR 2 VIEWS LEFT (GENERIC) from 02/04/2024 FINDINGS: BONES: Mild degenerative changes are seen in the hips bilaterally. The patient has had bilateral ACL repairs. In the right knee, the joint spaces are well maintained. Very mild degenerative changes a re seen in the medial femoral tibial joint. In the left knee, there is ukwe-rg-mbiylyce narrowing of the medial femoral tibial joint in the patellofemoral joint. Osteophytes are seen in the knee predo minantly involving the medial femoral tibial patellofemoral joint. There is a small joint effusion i n the left knee. There is a well corticated osseous density seen in the anterior joint space which m ay represent a loose body. Chondrocalcinosis is present. The ankles are well maintained.There is no significant leg length discrepancy. SOFT TISSUE: Normal. IMPRESSION: Osteoarthritis of the knees, left greater than right. DATA REPOSITORY: RADIATION DOSE DELIVERED:
== END 2024-05-23 15:47 | disposition home or self-care (01) ==
LOC: DIORS 15:47
PROVIDERS: PCP Nurse Practitioner Family; Visit Provider Student in an Organized Health Care Education/Training Program
DX: M17.32 Unilateral post-traumatic osteoarthritis, left knee (principal)
CPT/HCPCS: 73560; 77073

== ENCOUNTER 2024-06-28 09:44 | Outpatient (CLI) | payer BC, SELFPAY ==
--- NOTE | 2024-06-28 07:45 | DI.RAD_ITS ---
Exam(s) XR WRIST RT COMPLETE EXAM: XR WRIST RT COMPLETE CLINICAL HISTORY: Right wrist pain, history of previous fracture M25.531 PAIN RT WRIST. TECHNIQUE: 2D digital imaging was performed. COMPARISON: No exams were available for comparison FINDINGS: 3 views No evidence of acute fracture nor dislocation nor significant ulnar variance. Main finding here is advanced degenerative narrowing of the radiocarpal joint most evident at the rad ioscaphoid articulation. Scapholunate distance is upper normal. There is a degenerative cyst in the proximal lateral aspect of the triquetrum bone of the proximal carpal row. Distal carpal row articu lations appear unremarkable including the 1st carpometacarpal joint. Mild calcification in the regio n of the triangular fibrocartilage on the medial aspect of the wrist is noted. IMPRESSION: Advanced degenerative narrowing of the lateral aspect of the radiocarpal joint. Other findings as ab ove. DATA REPOSITORY: RADIATION DOSE DELIVERED:
--- NOTE | 2024-06-28 07:45 | DI.US_ITS ---
Exam(s) US UPPER EXTREMITY VENOUS RT EXAM: US UPPER EXTREMITY VENOUS RT CLINICAL HISTORY: Atraumatic right upper extremity edema R60.0 TECHNIQUE: GRAYSCALE, COLOR, DOPPLER IMAGING OF THE VENOUS SYSTEM OF THE UPPER EXTREMITY-RIGHT COMPARISON: NONE FINDINGS: Basilic vein: Patent. Normal color-flow and normal compression and augmentation properties. Brachial vein(s):Patent. Normal color flow. Normal compression and augmentation properties. Cephalic vein:Patent. Normal color flow. Normal compression and augmentation properties. Axillary vein: Patent. Normal color flow. Normal compression and augmentation properties. Visualized subclavian vein: Patent. No obvious intraluminal thrombus. IMPRESSION: 1. No evidence of venous thrombosis in the right upper extremity. 2. DATA REPOSITORY:
--- NOTE | 2024-06-28 16:36 | DI.VRAD_ITS ---
PROCEDURE INFORMATION: Exam: US Duplex Right Upper Extremity Veins, Limited Exam date and time: 06/28/2024 3:51 PM Age: 54 years old Clinical indication: Pain; Arm, upper; Right TECHNIQUE: Imaging protocol: Real-time duplex ultrasound of the right Upper Extremity with 2-D foreman scale, color Doppler flow and spectral waveform analysis with image documentation. Limited exam focused on the right upper extremity veins. COMPARISON: CR XR WRIST RT COMPLETE 06/28/2024 3:20 PM FINDINGS: Right deep veins: Unremarkable. Axillary and brachial veins are patent throughout without thrombus. Normal Doppler waveforms. Normal compressibility and/or augmentation response. Visualized internal jugular and subclavian veins are patent. Superficial veins: Unremarkable. Visualized cephalic and basilic veins are patent without thrombus. Soft tissues: Unremarkable. IMPRESSION: No evidence of deep vein thrombosis. Dictated and Authenticated by: Jorge Franklin MD. Orderin Manuel Stern MD
== END 2024-06-28 10:04 ==
LOC: DI 09:45
PROVIDERS: PCP Nurse Practitioner Family; Visit Provider Physician Assistant
DX: M19.031 Primary osteoarthritis, right wrist (principal)
CPT/HCPCS: 73110; 93971

== ENCOUNTER 2024-08-12 22:09 | Outpatient (REF) | payer BC, SELFPAY ==
[2024-08-12 22:16] LABS: BUN 15 mg/dL (7-18); Calcium 9.1 mg/dL (8.5-10.1); Chloride 107 mmol/L (98-107); Estimated GFR 90.56 (mL/min/1.73m2); Glucose 113 mg/dL (74-106); Potassium 3.9 mmol/L (3.5-5.1); Sodium 142 mmol/L (136-145); TSH (W/Ref FT4) 1.82 uIU/mL (0.36-3.74)
[2024-08-15 12:53] LABS: HBs Antibody, Quant 16.1 mIU/mL (See Note); Hep B Surface Ab Positive (See Note); Hepatitis B Core Antibody Negative (Negative); Hepatitis B Surface Antigen Negative (Negative)
== END 2024-08-12 22:10 | disposition home or self-care (01) ==
LOC: LBN 22:09
PROVIDERS: PCP Nurse Practitioner Family; Visit Provider Nurse Practitioner Family
DX: E03.9 Hypothyroidism, unspecified (principal); Z11.59 Encounter for screening for other viral diseases; I10 Essential (primary) hypertension
CPT/HCPCS: 80048; 86704; 86706; 87340; 84443